=== PATIENT | male | born 1980 | race Caucasian/White ===

== ENCOUNTER 2018-01-21 14:35 | Inpatient (IN) | payer BC ==
[~2018-01-21] VITALS: Ht 182.9 cm; Wt 127.4 kg
--- NOTE | ~2018-01-21 | CN ---
PATIENT NAME:FRANCIS LONDON MEDICAL RECORD: [id number] : 80 LOCATION:[id number] ADMIT DATE: 01/21/18 ACCOUNT: [id number] CONSULTING PHYSICIAN: ELLI MOULTON MD REFERRING PHYSICIAN: JIM AKHTAR MD DATE OF CONSULTATION: 01/22/2018 CONSULT REQUESTING PHYSICIAN: Jim Akhtar MD REASON FOR CONSULTATION: Bilateral pulmonary embolism. HISTORY OF PRESENT ILLNESS: Mr. London is a 37-year-old very pleasant gentleman. He came into the ER with a pleuritic type of chest pain. He was not feeling well. He was coughing with small amount of blood on the day of admission. Now, the hemoptysis had been improved. REVIEW OF SYSTEMS: As in history of present illness. PAST MEDICAL HISTORY: 1. Gastroesophageal reflux disease. 2. History of pneumonia. PAST SURGICAL HISTORY: Nonsignificant. ALLERGIES: HE IS ALLERGIC TO NIACIN. PERSONAL AND SOCIAL HISTORY: The patient is a nonsmoker, nondrinker. FAMILY HISTORY: Noncontributory. PHYSICAL EXAMINATION: GENERAL: Now, the patient is lying comfortable in bed. He is not in acute distress. VITAL SIGNS: The blood pressure is 118/76, pulse is 92, respiration is 18, temperature 98.4, and SPO2 is 93% on 2 liters nasal cannula. HEENT: Conjunctivae are pink. Sclerae are not icteric. NECK: Supple, no JVD. CHEST: The chest excursion is minimal, but no wheeze, no rales. HEART: Rhythm regular, normal sound, no murmur. ABDOMEN: Soft, bowel sounds present. No hepatosplenomegaly. RECTAL: Deferred. EXTREMITIES: No cyanosis, no clubbing, no pedal edema. SKIN: Warm, normal turgor. CENTRAL NERVOUS SYSTEM: The patient is awake and alert. There are no obvious cranial nerve abnormality. The gait was not tested. IMAGING: CTA of the chest: There are bilateral pulmonary embolism, right upper lobe has large embolus. There are also changes in the right lateral lung suggestive of lung infarct. OTHER LABORATORY DATA: CBC: The WBC is 6000, hemoglobin 11.9, hematocrit 35.9, the platelet count is 143. Chemistry; sodium is 139, potassium is 3.9, BUN is 16, creatinine 0.8. IMPRESSION: CONSULT REPORT [id number] FRANCIS LONDON 1. Bilateral pulmonary embolism. 2. Hemoptysis secondary to the pulmonary embolism that has been resolved. 3. Pleurisy secondary to pulmonary infarction. 4. Gastroesophageal reflux disease. 5. Morbid obesity. RECOMMENDATION: Continue Lovenox subcutaneous b.i.d. for 3 days, then we will change it to Xarelto or Eliquis. The patient should be treated for 6 months unless the patient has coagulopathy, workup for coagulopathy per Dr. Carpenter. Dr. Akhtar, thank you for involving me in the care of Mr. London. 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
[2018-01-21 16:01] LABS: BASOPHILS 0.2 % (0-2); EOSINOPHILS 1.1 % (0-7); HEMATOCRIT 39.9 % (42.0-54.0); HEMOGLOBIN 13.3 g/dL (13.5-17.5); IMMATURE GRANULOCYTES 0.2 % (0-5); LYMPHOCYTES 17.8 % (15-50); MCH 29.8 pg (26.0-34.0); MCHC 33.3 g/dL (31.0-37.0); MCV 89.5 fL (80.0-100.0); MEAN PLATELET VOLUME 9.7 fL (7.4-10.4); MONOCYTES 14.9 % (2-11); NEUTROPHILS 65.8 % (40-80); PLATELET COUNT 157 10x3/uL (130-400); RBC 4.46 10x6/uL (4.20-6.10); RDW 12.9 % (11.5-14.5); WBC 6.1 10x3/uL (4.8-10.8)
[2018-01-21 16:05] LABS: INR 1.12 (0.85-1.17)
[2018-01-21 16:07] LABS: ALBUMIN 3.7 g/dL (3.4-5.0); ALKALINE PHOSPHATASE 45 U/L (46-116); ALT (SGPT) 22 U/L (10-68); CALC OSMOLALITY 274 mosm/kg (275-300); CALCIUM 8.9 mg/dL (8.5-10.1); CARBON DIOXIDE 28.4 mmol/L (21.0-32.0); CHLORIDE - SERUM 101 mmol/L (98-107); CREATININE - SERUM 0.8 mg/dL (0.6-1.3); D-DIMER-QUANTITATIVE 1.51 ug/mLFEU (0.20-0.54); GLUCOSE 95 mg/dL (74-106); POTASSIUM - SERUM 4.3 mmol/L (3.5-5.1); PROTEIN - SERUM 7.8 g/dL (6.4-8.2); SODIUM 137 mmol/L (136-145); UREA NITROGEN 15 mg/dL (7-18); eGFR NON AFRICAN AMERICAN > 90 mL/min (90-120)
[2018-01-21 16:24] LABS: CREATINE KINASE 300 UL (21-232); PRO BNP 29 pg/mL (0-125); TROPONIN-I < 0.017 ng/mL (0.000-0.060)
[2018-01-21 16:49] LABS: CKMB 1.2 U/L (0.0-3.6)
[2018-01-21 21:48] VITALS: BP 127/61
[2018-01-21 22:50] VITALS: BP 127/61
[2018-01-22 02:26] VITALS: BP 136/50
[2018-01-22 04:20] LABS: BASOPHILS 0.2 % (0-2); EOSINOPHILS 1.3 % (0-7); HEMATOCRIT 35.9 % (42.0-54.0); HEMOGLOBIN 11.9 g/dL (13.5-17.5); IMMATURE GRANULOCYTES 0.2 % (0-5); LYMPHOCYTES 24.3 % (15-50); MCH 29.7 pg (26.0-34.0); MCHC 33.1 g/dL (31.0-37.0); MCV 89.5 fL (80.0-100.0); MEAN PLATELET VOLUME 9.2 fL (7.4-10.4); MONOCYTES 16.6 % (2-11); NEUTROPHILS 57.4 % (40-80); PLATELET COUNT 143 10x3/uL (130-400); RBC 4.01 10x6/uL (4.20-6.10); RDW 12.8 % (11.5-14.5)
[2018-01-22 04:40] LABS: CALC OSMOLALITY 279 mosm/kg (275-300); CALCIUM 8.3 mg/dL (8.5-10.1); CARBON DIOXIDE 28.3 mmol/L (21.0-32.0); CHLORIDE - SERUM 102 mmol/L (98-107); CREATININE - SERUM 0.8 mg/dL (0.6-1.3); GLUCOSE 120 mg/dL (74-106); POTASSIUM - SERUM 3.9 mmol/L (3.5-5.1); SODIUM 139 mmol/L (136-145); UREA NITROGEN 16 mg/dL (7-18); eGFR NON AFRICAN AMERICAN > 90 mL/min (90-120)
[2018-01-22 04:49] LABS: INR 1.13 (0.85-1.17); PROTIME 14.1 SECONDS (11.6-15.0)
[2018-01-22 09:48] VITALS: BP 113/57
[2018-01-22 13:22] VITALS: BP 118/76
[2018-01-22 18:10] VITALS: BP 125/64
[2018-01-22 20:40] VITALS: BP 156/79
[2018-01-23 00:01] VITALS: BP 102/46
[2018-01-23] MEDS ORDERED: CELEXA40 MG PO (06:16)
[2018-01-23] MEDS ORDERED: CLONAZEPAM2 MG/TAB PO (06:16)
[2018-01-23] MEDS ORDERED: BUPRENORPHIN-N1 EACH SL (06:17)
[2018-01-23] MEDS ORDERED: VYVANSE70 MG PO (06:17)
[2018-01-23] MEDS ORDERED: ULTRAM50 MG PO (06:18)
[2018-01-23] MEDS ORDERED: GABAPENTIN100 MG PO (06:19)
[2018-01-23 07:05] LABS: BASOPHILS 0.2 % (0-2); EOSINOPHILS 2.4 % (0-7); HEMATOCRIT 37.1 % (42.0-54.0); HEMOGLOBIN 12.3 g/dL (13.5-17.5); MCH 29.6 pg (26.0-34.0); MCHC 33.2 g/dL (31.0-37.0); MCV 89.2 fL (80.0-100.0); MONOCYTES 13.3 % (2-11); NEUTROPHILS 52.1 % (40-80); PLATELET COUNT 160 10x3/uL (130-400); RBC 4.16 10x6/uL (4.20-6.10); RDW 12.9 % (11.5-14.5); WBC 4.6 10x3/uL (4.8-10.8)
[2018-01-23 07:27] LABS: CALC OSMOLALITY 283 mosm/kg (275-300); CALCIUM 8.7 mg/dL (8.5-10.1); CARBON DIOXIDE 27.8 mmol/L (21.0-32.0); CHLORIDE - SERUM 103 mmol/L (98-107); CREATININE - SERUM 0.6 mg/dL (0.6-1.3); GLUCOSE 118 mg/dL (74-106); POTASSIUM - SERUM 3.9 mmol/L (3.5-5.1); SODIUM 142 mmol/L (136-145); UREA NITROGEN 13 mg/dL (7-18); eGFR NON AFRICAN AMERICAN > 90 mL/min (90-120)
[2018-01-23 08:39] VITALS: BP 117/58
[2018-01-23 09:12] LABS: FOLATE (FOLIC ACID) - SERUM 8.3 ng/mL (>3.0)
[2018-01-23 12:32] VITALS: BP 108/59
[2018-01-23 14:12] LABS: ANA REFLEX - DIRECT Negative (Negative)
[2018-01-23 15:47] VITALS: BP 103/54
[2018-01-23 17:57] VITALS: Ht 182.9 cm; Wt 127.4 kg
[2018-01-23 22:19] VITALS: BP 130/63
[2018-01-24 01:31] VITALS: BP 128/65
[2018-01-24 06:18] LABS: BASOPHILS 0.5 % (0-2); EOSINOPHILS 3.4 % (0-7); HEMATOCRIT 35.4 % (42.0-54.0); HEMOGLOBIN 11.6 g/dL (13.5-17.5); IMMATURE GRANULOCYTES 0.2 % (0-5); LYMPHOCYTES 41.5 % (15-50); MCH 29.4 pg (26.0-34.0); MCHC 32.8 g/dL (31.0-37.0); MCV 89.6 fL (80.0-100.0); MEAN PLATELET VOLUME 9.5 fL (7.4-10.4); MONOCYTES 11.7 % (2-11); NEUTROPHILS 42.7 % (40-80); PLATELET COUNT 180 10x3/uL (130-400); RBC 3.95 10x6/uL (4.20-6.10); RDW 12.8 % (11.5-14.5); WBC 4.1 10x3/uL (4.8-10.8)
[2018-01-24 06:31] LABS: CALC OSMOLALITY 280 mosm/kg (275-300); CALCIUM 8.6 mg/dL (8.5-10.1); CARBON DIOXIDE 26.4 mmol/L (21.0-32.0); CHLORIDE - SERUM 104 mmol/L (98-107); CREATININE - SERUM 0.6 mg/dL (0.6-1.3); GLUCOSE 101 mg/dL (74-106); SODIUM 141 mmol/L (136-145); UREA NITROGEN 13 mg/dL (7-18); eGFR NON AFRICAN AMERICAN > 90 mL/min (90-120)
[2018-01-24 08:23] VITALS: BP 119/67
[2018-01-24 11:47] VITALS: BP 109/57
[2018-01-24] MEDS ORDERED: NICODERM C1 PATCH .3 TRANSDERM (12:27)
[2018-01-24] MEDS ORDERED: TESSALON PERLE100 MG PO (12:28)
[2018-01-24] MEDS ORDERED: MUCINEX600 MG PO (12:28)
[2018-01-24] MEDS ORDERED: LOVENOX150 MG/ML SC (12:29)
[2018-01-24] MEDS ORDERED: ELIQUIS5 MG PO (12:30)
[2018-01-24 15:47] VITALS: BP 112/58
[2018-01-24 22:31] VITALS: BP 115/68
[2018-01-25 04:13] VITALS: BP 106/67
[2018-01-25 05:18] LABS: BASOPHILS 0.3 % (0-2); EOSINOPHILS 4.9 % (0-7); HEMATOCRIT 37.9 % (42.0-54.0); HEMOGLOBIN 12.3 g/dL (13.5-17.5); LYMPHOCYTES 44.1 % (15-50); MCH 29.2 pg (26.0-34.0); MCHC 32.5 g/dL (31.0-37.0); MEAN PLATELET VOLUME 9.5 fL (7.4-10.4); NEUTROPHILS 41.7 % (40-80); PLATELET COUNT 203 10x3/uL (130-400); RBC 4.21 10x6/uL (4.20-6.10); RDW 12.9 % (11.5-14.5); WBC 3.7 10x3/uL (4.8-10.8)
[2018-01-25 05:40] LABS: CALC OSMOLALITY 286 mosm/kg (275-300); CALCIUM 9.1 mg/dL (8.5-10.1); CHLORIDE - SERUM 105 mmol/L (98-107); CREATININE - SERUM 0.7 mg/dL (0.6-1.3); GLUCOSE 106 mg/dL (74-106); SODIUM 143 mmol/L (136-145); UREA NITROGEN 18 mg/dL (7-18); eGFR NON AFRICAN AMERICAN > 90 mL/min (90-120)
[2018-01-25 08:17] VITALS: BP 111/55
[2018-01-25 15:19] LABS: ACLA - IGG AB <9 GPL U/mL (0-14); ACLA - IGM AB 9 MPL U/mL (0-12)
[2018-01-26 10:21] LABS: CEA 1.2 ng/mL (0.0-4.7)
[2018-01-27 06:15] LABS: BETA-2 MICROGLOBULIN 2.1 mg/L (0.6-2.4)
[2018-01-28 19:12] LABS: FACTOR II DNA ANALYSIS Negative (())
== END 2018-01-25 11:20 | disposition home or self-care (01) | DRG 176 ==
LOC: D.ER 14:35 → D.MS 18:04 → D.EDHOLD 18:04 → D.M2 18:36 → D.EDHOLD 18:40 → D.MS 18:41
PROVIDERS: Emergency Medicine; Family Medicine; Internal Medicine Hematology & Oncology
DX: I26.99 Other pulmonary embolism without acute cor pulmonale (principal); R09.1 Pleurisy; I27.20 Pulmonary hypertension, unspecified; E66.01 Morbid (severe) obesity due to excess calories; Z68.30 Body mass index [BMI] 30.0-30.9, adult; D64.9 Anemia, unspecified; K21.9 Gastro-esophageal reflux disease without esophagitis